=== PATIENT | male | born 1945 | race Hispanic/Latino ===

== ENCOUNTER → 2024-06-28 | Outpatient (REF) | payer OTHER ==
[~2024-06-28] MED LIST: REGADENOSON 0.4 MG/5 ML SYR IV ONE
== END ==
LOC: NM 08:02
PROVIDERS: ATTEND Internal Medicine Cardiovascular Disease
DX: R06.02 Shortness of breath (principal); Z95.1 Presence of aortocoronary bypass graft; I25.10 Atherosclerotic heart disease of native coronary artery without angina pectoris; I10 Essential (primary) hypertension
CPT/HCPCS: 78452; 93017; A9502; J2785